=== PATIENT | female | born 1980 | race African-American/Black ===

== ENCOUNTER 2017-10-12 20:51 | Emergency (ER) | payer SELFPAY ==
--- NOTE | 2017-10-12 21:30 | RADIOLOGY REPORT (SQ) ---
EXAM DESCRIPTION: TOE RIGHT COMPLETED DATE/TIME: 10/12/2017 9:22 pm REASON FOR STUDY: Bumped toe 2 wks ago- now pain/throbbing COMPARISON: None. NUMBER OF VIEWS: Two views. TECHNIQUE: AP oblique images acquired of the right fifth toe. LIMITATIONS: None. FINDINGS: MINERALIZATION: Normal. BONES: Spiral fracture proximal phalanx 5th digit. No intra-articular extension. JOINTS: No effusions. SOFT TISSUES: No soft tissue swelling. No foreign body. OTHER: No other significant finding. IMPRESSION: Spiral fracture proximal phalanx 5th digit. COMMENT: SITE OF TRAUMA/COMPLAINT MARKED/STAMP COMPLETED: Yes TECHNICAL DOCUMENTATION: JOB ID: [id number] [employer]- All Rights Reserved Reading location - IP/workstation name: [email or web address]
--- NOTE | 2017-10-12 21:58 | ER Document Report ---
ED Extremity Problem, Lower - General Chief Complaint: Toe Injury Stated Complaint: TOE PAIN Time Seen by Provider: 10/12/17 21:52 Mode of Arrival: Ambulatory Information source: Patient Notes: 37-year-old female presented ED for complaint of pain to the fifth toe on the right foot. She states she injured this toe about 2 weeks ago and is continued to have pain in this area since then. She states she has not followed up with a doctor and thought she would just get better on her own but it has not gotten better. TRAVEL OUTSIDE OF THE [place] IN LAST 30 DAYS: No - HPI Patient complains to provider of: Injury, Pain Location: 5th Toe Occurred: Other - 2 weeks Where: Home Onset/Duration: Persistent Quality of pain: Sharp, Throbbing Severity: Moderate Pain Level: 4 Context: Stubbed Recent injury: Yes Associated symptoms: Painful ambulation Exacerbated by: Hanging down, Movement, Walking Relieved by: Elevation, Ice, Rest - Related Data Allergies/Adverse Reactions: Penicillins Allergy (Verified 10/12/17 21:50) Past Medical History - General Information source: Patient - Social History Smoking Status: Current Every Day Smoker Cigarette use (# per day): Yes Frequency of alcohol use: None Drug Abuse: None Lives with: Family Family History: Reviewed & Not Pertinent Patient has suicidal ideation: No Patient has homicidal ideation: No - Past Medical History Cardiac Medical History: Reports: None Pulmonary Medical History: Reports: None EENT Medical History: Reports: None Neurological Medical History: Reports: None Endocrine Medical History: Reports: None Renal/ Medical History: Reports: None Malignancy Medical History: Reports: None GI Medical History: Reports: None Musculoskeletal Medical History: Reports Hx Musculoskeletal Trauma Skin Medical History: Reports None Psychiatric Medical History: Reports: None Traumatic Medical History: Reports: Hx Fractures - Right fifth toe Infectious Medical History: Reports: None Surgical Hx: Negative Past Surgical History: Reports: None Review of Systems - Review of Systems Constitutional: No symptoms reported EENT: No symptoms reported Cardiovascular: No symptoms reported Respiratory: No symptoms reported Gastrointestinal: No symptoms reported Genitourinary: No symptoms reported Female Genitourinary: No symptoms reported Musculoskeletal: Other - Pain and swelling the right fifth toe Skin: No symptoms reported Hematologic/Lymphatic: No symptoms reported Neurological/Psychological: No symptoms reported -: Yes All other systems reviewed and negative Physical Exam - Vital signs Vitals: Temp Pulse Resp BP Pulse Ox 98.7 F 83 16 140/91 H 100 10/12/17 20:55 10/12/17 20:55 10/12/17 20:55 10/12/17 20:55 10/12/17 20:55 Interpretation: Normal - General General appearance: Appears well, Alert - HEENT Head: Normocephalic, Atraumatic Eyes: Normal Pupils: PERRL - Respiratory Respiratory status: No respiratory distress Chest status: Nontender Breath sounds: Normal Chest palpation: Normal - Cardiovascular Rhythm: Regular Heart sounds: Normal auscultation Murmur: No - Abdominal Inspection: Normal Distension: No distension Bowel sounds: Normal Tenderness: Nontender Organomegaly: No organomegaly - Back Back: Normal, Nontender - Extremities General upper extremity: Normal inspection, Nontender, Normal color, Normal ROM , Normal temperature General lower extremity: Normal ROM, Normal temperature, Normal weight bearing. No: Angelique's sign Foot: Tender, Ecchymosis - Right fifth toe right fifth toe and surrounding area , Edema - Right fifth toe, No evidence of FB, Tender 5th metatarsal - Neurological Neuro grossly intact: Yes Cognition: Normal Orientation: AAOx4 Alvaro Coma Scale Eye Opening: Spontaneous Alvaro Coma Scale Verbal: Oriented Alvaro Coma Scale Motor: Obeys Commands Alvaro Coma Scale Total: 15 Speech: Normal Motor strength normal: LUE, RUE, LLE, RLE Sensory: Normal - Psychological Associated symptoms: Normal affect, Normal mood - Skin Skin Temperature: Warm Skin Moisture: Dry Skin Color: Normal, Ecchymosis - Right fifth toe and surrounding area Course - Re-evaluation Re-evalutation: 10/13/17 02:32 Discussed x-ray with patient. Report of x-ray given to patient. Patient was instructed she needed to follow-up with orthopedics as this was a displaced fracture of the proximal phalanx of the fifth toe on the right foot. This happened about 2 weeks ago. Patient is continuing to have pain. Patient was discharged home with a [employer] dispense pack and told to please make sure this last long enough for her to follow-up. Patient is encouraged to elevate and ice the foot and stay off it is much as possible to decrease the pain. Patient verbalized understanding of treatment plan. - Vital Signs Vital signs: Temp Pulse Resp BP Pulse Ox 98.6 F 82 14 137/83 H 100 10/12/17 22:12 10/12/17 22:12 10/12/17 22:12 10/12/17 22:12 10/12/17 22:12 - Diagnostic Test Radiology reviewed: Image reviewed, Reports reviewed Procedures - Immobilization Right Foot Time completed: 22:30 Pre-Proc Neuro Vasc Exam: Normal Immobilizer type: Post-op shoe Performed by: ALLEN Post-Proc Neuro Vasc Exam: Normal Alignment checked and good: No - toe was not reduced dane taped nd post op shoe Discharge - Discharge Clinical Impression: spiral fracture 5th proximal toe Condition: Stable Disposition: HOME, SELF-CARE Additional Instructions: Fractured Toe You have fractured your toe. Although this fracture doesn't need a cast or splint, emergency evaluation was needed to assess the straightness of the bones and joints. Reduction ("setting") is necessary for toe fractures which are crooked or twisted. A toe fracture will heal in about three weeks. Usually, the fractured toe is taped to the next toe. The second toe acts as a moving splint to protect the broken one. Ice and elevation help during the first 48 hours. You may need crutches at first if walking is painful. When you begin walking, be careful NOT to do things that hurt. If weight bearing is not comfortable within a few days, you may require a special shoe, walking boot, or cast. Call the doctor or return at once if severe swelling, severe pain, or numbness develop in the toe, or if you suspect you may have re-injured it. ICE & ELEVATION: Apply ice packs frequently against the painful area. Many different schedules are recommended, such as "20 minutes on, 20 minutes off" or "one hour ice, two hours rest." If you need to work, you may need to go longer between ice treatments. You should plan to have the area ice packed AT LEAST one- fourth of the time. The ice should be applied over the wrap, tape, or splint, or over a layer of cloth -- not directly against the skin. Some ice bags have a built-in cloth and can be put directly on the skin. Your injured part should be elevated as much as possible over the next 48 hours. Try to keep the injury above the level of the heart. Avoid use of the injured area. Elevation and rest will decrease the swelling. USE OF XYOS-NBD-GIFUMFR IBUPROFEN: Ibuprofen (Advil, Nuprin, Medipren, Motrin IB) is a medication for fever and pain control. In addition, it has anti- inflammatory effects which may be beneficial, especially in the treatment of injuries. It's best to take ibuprofen with food. Persons with ulcer disease or allergy to aspirin should notify their physician of this before taking ibuprofen. Ibuprofen can be given every four to six hours, for a total of four doses daily. Age Pain or fever dose Antiinflammatory dose 6-8 yr 200 mg (1 tab) 200 mg (1 tab) 9-11 yr 200 mg (1 tab) 200-400 mg (1-2 tab) 11-14 yr 200-400 mg (1-2 tab) 400 mg (2 tab) 15-adult 400 mg (2 tab) 600 mg (3 tab) ORAL NARCOTIC MEDICATION: You have been given a [employer] dispense pack for pain control. This medication is a narcotic. It's best taken with food, as nausea can result if taken on an empty stomach. Don't operate machinery or drive within six hours of taking this medication. Do not combine this medicine with alcohol, or with any medication which can cause sedation (such as cold tablets or sleeping pills) unless you get permission from the physician. Narcotics tend to cause constipation. If possible, drink plenty of fluids and eat a diet high in fiber and fruits. Please be aware that prescription narcotics also have the potential for abuse. People become addicted to these medications because of the general sense of wellbeing that they induce. This feeling along with a significant reduction in tension, anxiety, and aggression provides a stimulating seductive quality to these drugs. Once your pain is under control, we encourage you to discard your unused narcotics. Post-Op Shoe You are to use a "post-op shoe," sometimes also called a "bunnion shoe." This shoe helps protect minor fractures, sprains, and other injuries of the toes or foot. You may remove the shoe for bathing. Walk carefully. If you're feeling pain, put less weight on the foot, take smaller steps, or use a cane. If you have a new injury, you may need to use crutches for the first couple of days. If pain still prevents walking after a few days, contact the doctor. If there's unexpected pain in your foot, if blisters or sore spots develop , or if the shoe is physically coming apart, return at once. Remember that you' re welcome to come in at any time to have the fit of the shoe checked and adjusted. FOLLOW-UP CARE: If you have been referred to a physician for follow-up care, call the physician s office for an appointment as you were instructed or within the next two days. If you experience worsening or a significant change in your symptoms, notify the physician immediately or return to the Emergency Department at any time for re-evaluation. Forms: Elevated Blood Pressure, Special Work Note, Smoking Cessation Education Referrals: NOHEMY SOLIS MD [ACTIVE STAFF] - Follow up as needed
[2017-10-12] MEDS ORDERED: HYDROCODONE/ACETAMINOPHEN 5-325 MG (6 TAB/ER DISP) PO PRN (22:01)
[2017-10-12 22:13] VITALS: BP 137/83
== END 2017-10-12 22:28 | disposition home or self-care (01) ==
LOC: ER 20:51
DX: S92.511A Displaced fracture of proximal phalanx of right lesser toe(s), initial encounter for closed fracture (principal); X58.XXXA Exposure to other specified factors, initial encounter; Y92.009 Unspecified place in unspecified non-institutional (private) residence as the place of occurrence of the external cause; F17.210 Nicotine dependence, cigarettes, uncomplicated; Z88.0 Allergy status to penicillin
CPT/HCPCS: 99283

== ENCOUNTER 2018-02-10 22:40 | Emergency (ER) | payer MEDICAID ==
--- NOTE | 2018-02-10 23:27 | ER Document Report ---
ED ENT - General Chief Complaint: Toothache Stated Complaint: TOOTHACHE Time Seen by Provider: 02/10/18 23:07 Mode of Arrival: Ambulatory Information source: Patient Notes: To note first off and patient was listed as having heart rate 173 as was a misprint but the tech that wrote it down had left by the time it was discovered and not legal for him with the change except her. Our nursing staff is retaken it again and patient's heart rate is 88 on my recheck. Currently patient's main complaint to come here today is twofold 1. She had bilateral ear piercings for the first time in her life up in her auricle and this was 4 weeks ago in 2 weeks ago she started having pain and discomfort in the area along with a dental pain on the left upper back molar where she has a bad tooth. She is started taking ibuprofen and Tylenol and she is taking it "like water". And is not getting any better. She states that yesterday she squeezed some green pus out of the auricle of the left ear lobe. She denies having fevers up until today and this morning she woke up she was dripping wet. Patient denies any other medical problems. She does smoke approximately half a pack per day. 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 TRAVEL OUTSIDE OF THE [place] IN LAST 30 DAYS: No - HPI Patient complains to provider of: Dental problem, Ear problem Onset: Other - 2 weeks ago Onset/Duration: Gradual, Persistent, Worse Quality of pain: Achy, Sharp, Stabbing Severity: Severe Pain Level: 4 Location of pain: Ears, Tooth Teeth: 1 - Dental pain into the gumline of a fractured back left upper molar. Associated symptoms: Broken tooth, Dental pain, Dental caries, Ear pain, Face swelling, Headache, Jaw swelling Similar symptoms previously: No Recently seen / treated by doctor: No - Related Data Allergies/Adverse Reactions: Penicillins Allergy (Verified 10/12/17 21:50) Past Medical History - Social History Smoking Status: Current Every Day Smoker Cigarette use (# per day): Yes - Half-pack a day Chew tobacco use (# tins/day): No Smoking Education Provided: No Frequency of alcohol use: None Drug Abuse: None Family History: Reviewed & Not Pertinent Patient has suicidal ideation: No Patient has homicidal ideation: No Renal/ Medical History: Denies: Hx Peritoneal Dialysis Musculoskeletal Medical History: Reports Hx Musculoskeletal Trauma Traumatic Medical History: Reports: Hx Fractures - Right fifth toe Past Surgical History: Reports: Hx Cholecystectomy Review of Systems - Review of Systems Constitutional: See HPI, Fever EENT: Ear pain, Ear discharge, Mouth pain, Dental problem Cardiovascular: No symptoms reported Respiratory: No symptoms reported Gastrointestinal: No symptoms reported Genitourinary: No symptoms reported Female Genitourinary: No symptoms reported Musculoskeletal: No symptoms reported Skin: No symptoms reported Hematologic/Lymphatic: No symptoms reported Neurological/Psychological: No symptoms reported -: Yes All other systems reviewed and negative Physical Exam - Vital signs Vitals: Temp Pulse Resp BP Pulse Ox 98.7 F 173 H 16 137/80 H 100 02/10/18 22:55 02/10/18 22:55 02/10/18 22:55 02/10/18 22:55 02/10/18 22:55 As stated earlier the 173 heart rate that was mistakenly placed and there was a misprint. On the triage sheet that the girl wrote up it did have her heart rate down at 87 and she had a blood pressure of 137/80 so she may have inverted at 137 mistakenly. Any rate was rechecked and I had her at believe 88. - Notes Notes: PHYSICAL EXAMINATION: GENERAL: Patient is a well-nourished well-developed 37-year-old female who is in no apparent distress but is in obvious pain and discomfort. Swelling on the left side of the face can be seen from entering the room. HEAD: Atraumatic, normocephalic. EYES: Pupils equal round and reactive to light, extraocular movements intact, conjunctiva are normal. ENT: Examination of the head and upper airway showed nasal mucosa to be moderately edematous and edematous with mild rhinorrhea. She has bilateral nasal congestion. Bilateral TMs are bulging slightly with no air-fluid levels. Examination of patient's left auricle shows that there is a post in the cartilaginous material going in a upward direction and there appears to be some very faint amount of pus which is expressible with pressure added. But is very small amount and the swelling on there does not look very large. Coming down to the zygomatic process patient has a moderate amount of tenderness there she has on opening on the right side a click and a shift of the socket. I believe this may be secondary to the swelling on the left side of the face. The swelling is moderate but not overt. The swelling is around the zygomatic process and extends down to the angle of the jaw. Further evaluation of the oral cavity shows that she has the left upper back molar decayed and fractured. There is some expressible discharge when pressure applied to the fracture portion of the tooth. The gum looks moderately inflamed. This is where I believe most of the discomfort and pain is coming from. This may be also was causing the right side to shift when she opens her mouth. NECK: Normal range of motion, supple without lymphadenopathy LUNGS: Breath sounds clear to auscultation bilaterally and equal. No wheezes rales or rhonchi. HEART: Regular rate and rhythm without murmurs Female : deferred Musculoskeletal: Normal range of motion, no pitting or edema. No cyanosis. NEUROLOGICAL: Normal speech, normal gait. Normal sensory, motor exams PSYCH: Normal mood, normal affect. SKIN: Warm, Dry, normal turgor, no rashes or lesions noted. Course - Re-evaluation Re-evalutation: 02/10/18 23:33 I informed patient that I believe she is got 2 processes going on the ear I believe is just a minor addition to this. Although I have informed her that if she does not clear up the infection and the cartilaginous material that is just can become floppy. Patient has allergies to penicillin so for her dental pain we will put her on clindamycin since she also has the infection of the auricle of the ear. I have informed patient that this may upset her stomach and that if it just when she can back off 1 pill a day to see if that helps. I am also been put on a low steroid taper small to help with the inflammation of the face. And I am putting her on some pain medication secondary to the TMJ and the moderate amount of crepitus and movement of the right side. - Vital Signs Vital signs: Temp Pulse Resp BP Pulse Ox 98.7 F 173 H 16 137/80 H 100 02/10/18 22:55 02/10/18 22:55 02/10/18 22:55 02/10/18 22:55 02/10/18 22:55 Discharge - Discharge Clinical Impression: Dental abscess, Cellulitis of auricle of left ear, TMJ (temporomandibular joint disorder) Condition: Stable Disposition: HOME, SELF-CARE Instructions: Abscess ([facility]), [facility], Clindamycin ([facility]), Oral Narcotic Medication ([facility]), Toothache ([facility]), Cellulitis ([facility]) Additional Instructions: As we have discussed I believe you have to process ongoing one is an infection in the auricle of the left ear where you have the new post placement. This is something you must monitor very closely because an infection in the cartilaginous area of the ear not taking care of can cause it to become spongy and soft. I also believe he has a minor to moderate abscess in the left upper back molar of the tooth that is broken. Again antibiotic should help relieve this discomfort and pain. The swelling of your face should also start to be reduced with the addition of the steroid. You need to monitor this very very closely. The popping out of your jaw on the right side if it totally dislocates is very painful and is very difficult to put back into place. Once we get the swelling on the left side down I believe you be back to your baseline. Should that happen come directly to the emergency room. As far as dental help goes you can go to [facility] they do offer dental intervention for people and needed. Prescriptions: Clindamycin HCl [Cleocin 300 mg Capsule] 300 mg PO Q6 10 Days #40 capsule Fluconazole [Diflucan] 150 mg PO ONCE PRN #1 tablet PRN Reason: Oxycodone HCl/Acetaminophen [Percocet 5-325 mg Tablet] 1 tab PO Q6 PRN #12 tablet PRN Reason: Prednisone 5 mg PO ASDIR 6 Days #1 tab.ds.pk Forms: Smoking Cessation Education, Return to Work Referrals: [facility] [NO LOCAL MD] - Follow up as needed
[2018-02-10] MEDS ORDERED: CLINDAMYCIN HCL 150 MG CAPSULE PO ONE (23:42)
[2018-02-10 23:58] VITALS: BP 138/79
== END 2018-02-10 23:58 | disposition home or self-care (01) ==
LOC: ER 22:40
DX: K04.7 Periapical abscess without sinus (principal); H60.12 Cellulitis of left external ear; M26.609 Unspecified temporomandibular joint disorder, unspecified side; K02.9 Dental caries, unspecified; K08.89 Other specified disorders of teeth and supporting structures; J34.89 Other specified disorders of nose and nasal sinuses; F17.210 Nicotine dependence, cigarettes, uncomplicated; Z88.0 Allergy status to penicillin; R09.81 Nasal congestion
CPT/HCPCS: 99282; J3490

== ENCOUNTER 2018-08-24 08:07 | Emergency (ER) | payer MEDICAID ==
[2018-08-24] MEDS ORDERED: IBUPROFEN 800 MG TABLET PO ONE (09:07)
--- NOTE | 2018-08-24 09:14 | ER Document Report ---
HPI - HPI Patient complains to provider of: right hand pain Time Seen by Provider: 08/24/18 08:33 Onset: Yesterday Onset/Duration: Persistent Quality of pain: Achy, Throbbing Severity: Severe Pain Level: 4 Context: Patient presents to the emergency department with complaints of right hand pain. 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 She thought it may have been a insect bite. Today she woke up her right hand is swollen. She reports pain with movement. No other complaints such as fever vomiting diarrhea. Patient does report history of carpal tunnel syndrome in both wrist. Denies trauma. Patient is right-hand dominant. 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 Family History: Reviewed & Not Pertinent Patient has suicidal ideation: No Patient has homicidal ideation: No Renal/ Medical History: Denies: Hx Peritoneal Dialysis Musculoskeletal Medical History: Reports Hx Musculoskeletal Trauma, Reports Other - carpal tunnel Traumatic Medical History: Reports: Hx Fractures - Right fifth toe Past Surgical History: Reports: Hx Cholecystectomy Vertical Provider Document - CONSTITUTIONAL Agree With Documented VS: Yes Exam Limitations: No Limitations General Appearance: WD/WN, Mild Distress - when right hand palpated - INFECTION CONTROL TRAVEL OUTSIDE OF THE [place] IN LAST 30 DAYS: No - HEENT HEENT: Atraumatic, Normocephalic - NECK Neck: Supple - RESPIRATORY Respiratory: No Respiratory Distress - CARDIOVASCULAR Cardiovascular: Regular Rate - MUSCULOSKELETAL/EXTREMETIES Musculoskeletal/Extremeties: Tender - right hand dorsal ttp, swollen +erythema, good cap refill, + radial pulse, neg tinels - NEURO Level of Consciousness: Awake, Alert, Appropriate Motor/Sensory: No Motor Deficit - DERM Integumentary: Warm, Dry Course - Re-evaluation Re-evalutation: 08/24/18 10:27 X-ray negative. Patient reports feeling better after ice pack was placed on her hand. She was instructed on ice and elevating her hand. Instructed on signs and symptoms of infection. She verbalized understanding to all instructions. Dictation of this chart was performed using voice recognition software; therefore, there may be some unintended grammatical errors. - Vital Signs Vital signs: Temp Pulse Resp BP Pulse Ox 98.4 F 78 18 133/69 H 100 08/24/18 08:11 08/24/18 08:11 08/24/18 08:11 08/24/18 08:11 08/24/18 08:11 - Diagnostic Test Radiology reviewed: Image reviewed, Reports reviewed - EXAM DESCRIPTION: HAND RIGHT 3 VIEWS COMPLETED DATE/TIME: 08/24/2018 9:39 am REASON FOR STUDY: bony tenderness COMPARISON: None. EXAM PARAMETERS: NUMBER OF VIEWS: Three views. TECHNIQUE: AP, lateral and oblique radiographic images acquired of the right hand. LIMITATIONS: None. FINDINGS: MINERALIZATION: Normal. BONES: No acute fracture or dislocation. No worrisome bone lesions. JOINTS: No effusions. SOFT TISSUES: Dorsal soft tissue swelling OTHER: No other significant finding. IMPRESSION: Soft tissue swelling. No fracture. Discharge - Discharge Clinical Impression: Right hand pain Condition: Stable Disposition: HOME, SELF-CARE Instructions: Use of Diphenhydramine, Ibuprofen (General) ([facility]), Ice & Elevation ([facility]) Additional Instructions: *You have been evaluated for right hand pain *take benadryl as indicated *Rest/Ice/Elevate your hand *Follow up with your primary care provider within 5 days *Take medication as prescribed *Monitor your hand for increased swelling, warmth, redness *Return to ED for worsening condition, changes, needs Monitor your blood pressure. Your blood pressure was elevated today. This may be because you were anxious, in pain or because you need medication. It is important to follow up with your primary care provider for full evaluation. Prescriptions: Ibuprofen [Motrin 800 mg Tablet] 800 mg PO TID #20 tablet Forms: Elevated Blood Pressure, Return to Work, Smoking Cessation Education
[2018-08-24 10:05] VITALS: BP 130/64
--- NOTE | 2018-08-24 10:18 | RADIOLOGY REPORT (SQ) ---
EXAM DESCRIPTION: HAND RIGHT 3 VIEWS COMPLETED DATE/TIME: 08/24/2018 9:39 am REASON FOR STUDY: bony tenderness COMPARISON: None. EXAM PARAMETERS: NUMBER OF VIEWS: Three views. TECHNIQUE: AP, lateral and oblique radiographic images acquired of the right hand. LIMITATIONS: None. FINDINGS: MINERALIZATION: Normal. BONES: No acute fracture or dislocation. No worrisome bone lesions. JOINTS: No effusions. SOFT TISSUES: Dorsal soft tissue swelling OTHER: No other significant finding. IMPRESSION: Soft tissue swelling. No fracture. TECHNICAL DOCUMENTATION: JOB ID: [id number] [employer]- All Rights Reserved Reading location - IP/workstation name: [email or web address]
== END 2018-08-24 09:55 | disposition home or self-care (01) ==
LOC: ER 08:07
DX: M79.641 Pain in right hand (principal); F17.210 Nicotine dependence, cigarettes, uncomplicated; Z90.49 Acquired absence of other specified parts of digestive tract
CPT/HCPCS: 99283; 73130; J3490

== ENCOUNTER 2018-10-08 07:41 | Emergency (ER) | payer MEDICAID ==
[2018-10-08] MEDS ORDERED: IPRATROPIUM/ALBUTEROL 0.5-2.5 MG/3 ML AMPUL NEB ONE (09:22)
--- NOTE | 2018-10-08 11:02 | ER Document Report ---
HPI - HPI Time Seen by Provider: 10/08/18 08:45 Pain Level: 2 Notes: 38-year-old female presents the ED for complaints of productive cough, chills that started approximately 3 days ago. Patient is have a pack-a-day smoker for the last 17 years. Has not tried any azvx-xeg-fmelfma medications. Worse with time, nothing makes better. Reports nasal congestion, ear pain. Denies any sore throat. Patient states she is unsure if she has seasonal allergies. Denies fevers, chills, chest pain,palpitations, shortness of breath, dyspnea, nausea, vomiting, diarrhea, abdominal pain, hematuria,blurred vision, double vision, loss of vision, speech changes, LH, dizziness, syncope, headaches, wheezing, ST, neck pain, weakness, bowel or bladder dysfunction, saddle anesthesia, numbness or tingling in bilateral upper or lower extremities equally, muscle paralysis, weakness in bilateral upper or lower extremities equally or rash. - CONSTITUTIONAL Constitutional: REPORTS: Chills - EENT EENT: REPORTS: Sore Throat - CARDIOVASCULAR Cardiovascular: REPORTS: Chest pain - RESPIRATORY Respiratory: REPORTS: Coughing - REPRODUCTIVE Reproductive: DENIES: : Past Medical History - General Information source: Patient - Social History Smoking Status: Current Every Day Smoker Frequency of alcohol use: None Drug Abuse: None Family History: Reviewed & Not Pertinent Patient has suicidal ideation: No Patient has homicidal ideation: No Renal/ Medical History: Denies: Hx Peritoneal Dialysis Musculoskeletal Medical History: Reports Hx Musculoskeletal Trauma Traumatic Medical History: Reports: Hx Fractures - Right fifth toe Past Surgical History: Reports: Hx Cholecystectomy Vertical Provider Document - CONSTITUTIONAL Agree With Documented VS: Yes Exam Limitations: No Limitations General Appearance: WD/WN Notes: PHYSICAL EXAMINATION: GENERAL: Well-appearing, well-nourished and in no acute distress. HEAD: Atraumatic, normocephalic. EYES: Pupils equal round and reactive to light, extraocular movements intact, conjunctiva are normal. ENT: TM intact with bilateral serous effusion, no erythema. Nares boggy bilaterally, oropharynx with erythema without exudates. Moist mucous membranes. NECK: Normal range of motion, supple without lymphadenopathy LUNGS: Diminished breath sounds in bilateral upper lobes, after breathing treatment, breath sounds clear to auscultation bilaterally and equal. No wheezes rales or rhonchi. HEART: Regular rate and rhythm without murmurs ABDOMEN: Soft, nontender, nondistended abdomen. No guarding, no rebound. No masses appreciated. Female : deferred Musculoskeletal: Normal range of motion, no pitting or edema. No cyanosis. NEUROLOGICAL: Cranial nerves grossly intact. Normal speech, normal gait. Normal sensory, motor exams PSYCH: Normal mood, normal affect. SKIN: Warm, Dry, normal turgor, no rashes or lesions noted. - INFECTION CONTROL TRAVEL OUTSIDE OF THE [place] IN LAST 30 DAYS: No Course - Re-evaluation Re-evalutation: 10/08/18 10:48 Patient afebrile vital stable no distress. Nurse's notes reviewed. Chest x-ray shows We will start patient on a course of prednisone 20 mg 3 times a day for 5 days as well as Ventolin inhaler. Advised to use wmqj-zpz-naealen antihistamine, decongestants, humidifier, use cough drops as needed.Presentation is most consistent with a viral upper respiratory infection. Patient is overall well appearance, vitals within normal limits, well-hydrated. Patient denies any headache, neck pain, and has no evidence of meningismus on examination. Lungs are clear bilaterally. No evidence of respiratory distress. Based on clinical exam and history, I do not suspect an acute pneumonia, meningitis, strep pharyngitis, or an acute encephalitis. No laboratory or imaging testing is indicated at this time. Will discharge patient with return precautions and followup recommendations. They are in agreement this plan have verbalized understanding return precautions. - Vital Signs Vital signs: Temp Pulse Resp BP Pulse Ox 98.9 F 76 16 144/83 H 98 10/08/18 07:45 10/08/18 07:45 10/08/18 07:45 10/08/18 07:45 10/08/18 07:45 Discharge - Discharge Clinical Impression: Cough Condition: Stable Disposition: HOME, SELF-CARE Instructions: Cough Suppressant & Expectorant Medications Additional Instructions: UPPER RESPIRATORY ILLNESS: You have a viral infection of the respiratory passages -- a "cold." This common infection causes nasal congestion, drainage, and often sore throat and cough. It is highly contagious. The disease usually lasts about 10 to 14 days. There is no "cure" for the viral infection -- it must run its course. If there is a complication, such as bacterial infection in the nose, sinuses, middle ear, or bronchial tubes, antibiotics may be required. The antibiotics won't affect the virus. Drink plenty of fluids. A humidifier may help. An expectorant medication or decongestant may make you more comfortable. Use acetaminophen or ibuprofen for fever or aches. See the doctor if fever persists over two days, if there is any significant worsening of your symptoms, or if you simply fail to improve as expected. BRONCHOSPASM: You have tightness in the bronchial tubes, called bronchospasm. This often occurs with bronchial infections. Allergies, inhaled chemicals, and polluted or cold air can also provoke bronchospasm. It's more likely in patients with asthma in the family. Emergency treatment of bronchospasm may include adrenaline shots or bronchodilator aerosol. You may feel lightheaded and have a rapid pulse for an hour or two. Rest and get plenty of fluids. At home, we'll treat you with a bronchodilator inhaler. Antibiotics and corticosteroids may be required for some patients. Until you recover, avoid chemical fumes, dusts, pollens, and exercising in very cold or dry air. If you smoke, stop now!! If you develop a fever, increased wheezing, chest pain, or severe shortness of breath, you should contact the doctor immediately. DECONGESTANT MEDICATION: A decongestant medicine has been prescribed. Often this medicine is combined in the same tablet with an antihistamine or expectorant. This type of medicine is helpful in treating a bad cold or sinus condition, as well as in treatment of the nasal congestion of hay fever. It is not of much benefit for lung infections. Decongestant medicines are related to stimulants. They can cause an increase in blood pressure and heart rate. Persons with heart disease and high blood pressure should not take decongestants without discussing this with the physician. If you develop palpitations, chest pain, headache, or tremors, stop the medicine and consult your physician. COUGH-SUPPRESSANT & EXPECTORANT MEDICATION: You are to use a cough medication as needed for relief of symptoms. This medicine is a combination of an expectorant (to make the mucous thinner and more easily "coughed up") and a cough suppressant (to reduce the frequency of coughing). The cough-suppressant medicine is related to narcotics. You may experience mild nausea and sleepiness. Some patients who are very sensitive to narcotics may have stomach pain from this medicine. Taking the medicine with food reduces these side effects. Do not drive or work with machinery until you know how this medicine affects you. The expectorant should have no side effects. Iodine-containing expectorants (such as organidin) should not be taken by persons with active thyroid disease unless approved by your doctor. Call the doctor if you develop shortness of breath, hives, rash, itching, lightheadedness, or severe nausea and vomiting. INHALED BRONCHODILATORS: You have received a treatment of and/or prescription for an inhaled bronchodilator -- a medication which stimulates the airways in the lung to dilate. This improves the flow of air in asthma, bronchitis, and emphysema. These medicines have some similarity to adrenaline, and can cause similar side effects: shakiness, racing heart, and a sense of nervousness. These side effects decrease with time. Contact your doctor if these side effects are severe. Do not over-use the medicine. Too-frequent use of the inhaler may make it ineffective. Call your doctor if the inhaler is not controlling your symptoms at the prescribed doses. STEROID MEDICATION: You have been given an injection of or oral medicine of the cortisone/steroid class. This medication is used to control inflammation or allergy. Anmol t is usually only given for a short period of time, until the acute process subsides. There are usually no side effects from short-term use of cortisone-like medications. Some persons feel an increased sense of well-being and are not sleepy at bedtime. Long-term use of cortisone medications is best avoided, unless required for a severe condition. If your condition does not remit, or relapses after the course of corticosteroid medication, you should consult your physician. USE OF ACETAMINOPHEN (Tylenol): Acetaminophen may be taken for pain relief or fever control. It's much safer than aspirin, offering a wider range of "safe" dosages. It is safe during . Some brand names are Tylenol, Panadol, Datril, Anacin 3, Tempra, and Liquiprin. Acetaminophen can be repeated every four hours. The following are maximum recommended dosages: >89 pounds or adults 650 mg to 900 mg Acetaminophen can be repeated every four hours. Maximum dose not to exceed 4000 mg a day. SMOKING: If you smoke, you should stop smoking. The tar and chemicals in cigarette smoke are harmful. Smoking has been shown to cause: emphysema chronic bronchitis lung cancer mouth and throat cancer stomach and pancreas cancer premature aging defects In addition, smoking increases ear and lung infections in children of smokers. FOLLOW-UP CARE: If you have been referred to a physician for follow-up care, call the physicians office for an appointment as you were instructed or within the next two days. If you experience worsening or a significant change in your symptoms, notify the physician immediately or return to the Emergency Department at any time for re-evaluation. Prescriptions: Albuterol Sulfate [Proair Respiclick] 90 mcg IH Q4HP PRN #1 [email or web address] PRN Reason: Prednisone [Deltasone 20 mg Tablet] 3 tab PO DAILY 5 Days #15 tablet Referrals: SANTY RODRIGUEZ DO [Primary Care Provider] - Follow up as needed PAYT CURIEL MD [ACTIVE STAFF] - Follow up as needed
--- NOTE | 2018-10-08 11:27 | RADIOLOGY REPORT (SQ) ---
EXAM DESCRIPTION: CHEST 2 VIEWS COMPLETED DATE/TIME: 10/08/2018 10:29 am REASON FOR STUDY: productive cough, smoker, chills COMPARISON: None. EXAM PARAMETERS: NUMBER OF VIEWS: two views TECHNIQUE: Digital Frontal and Lateral radiographic views of the chest acquired. RADIATION DOSE: NA LIMITATIONS: none FINDINGS: LUNGS AND PLEURA: No opacities, masses or pneumothorax. No pleural effusion. MEDIASTINUM AND HILAR STRUCTURES: No masses or contour abnormalities. HEART AND VASCULAR STRUCTURES: Heart normal size. No evidence for failure. BONES: No acute findings. HARDWARE: None in the chest. OTHER: No other significant finding. IMPRESSION: No acute abnormality of the lungs. No focal airspace opacity. TECHNICAL DOCUMENTATION: JOB ID: [id number] [employer]- All Rights Reserved Reading location - IP/workstation name: [email or web address]
[2018-10-08 11:39] VITALS: BP 140/73
== END 2018-10-08 11:40 | disposition home or self-care (01) ==
LOC: ER 07:41
DX: R05 Cough (principal); R09.81 Nasal congestion; H92.09 Otalgia, unspecified ear; R07.9 Chest pain, unspecified; F17.200 Nicotine dependence, unspecified, uncomplicated; J02.9 Acute pharyngitis, unspecified; R68.83 Chills (without fever)
CPT/HCPCS: 94640; 99283; 71046; J7620

== ENCOUNTER 2018-12-13 07:50 | Emergency (ER) | payer MEDICAID ==
[2018-12-13] MEDS ORDERED: ACETAMINOPHEN 325 MG TABLET PO ONE (09:11)
--- NOTE | 2018-12-13 10:28 | ER Document Report ---
HPI - HPI Patient complains to provider of: breast pain, nipple discharge, back pain Time Seen by Provider: 12/13/18 08:58 Onset: Other Onset/Duration: Persistent Quality of pain: Achy Severity: Moderate Pain Level: 3 Context: This 38-year-old female presents emergency department with complaints of right breast pain for the past 2 days with nipple discharge. She reports she noted yellow bile colored discharge bloody coming out of her right nipple. She reports when she took off her bra she noted to discharge there. Patient does have close family history of breast cancer. Patient complains of some firmness above her nipple area. She is never had a mammogram. Denies fever vomiting diarrhea. Also complains of right-sided low back pain that radiates down her right leg since 2018 when she had her twins. She reports the pain comes and goes worse when she is about to start her menses. No urinary bowel incontinence or retention denies paresthesia. Denies history of IV drug use, steroid use. Associated Symptoms: None Exacerbated by: Movement Relieved by: Denies Similar symptoms previously: Yes - back pain Recently seen / treated by doctor: No - REPRODUCTIVE Reproductive: DENIES: : Past Medical History - General Information source: Patient Last Menstrual Period: oct - Social History Smoking Status: Current Every Day Smoker Cigarette use (# per day): Yes Chew tobacco use (# tins/day): No Frequency of alcohol use: None Drug Abuse: None Lives with: Family Family History: Malignancy - breast cancer- mother, grandmother Patient has suicidal ideation: No Patient has homicidal ideation: No Renal/ Medical History: Denies: Hx Peritoneal Dialysis Musculoskeletal Medical History: Reports Hx Musculoskeletal Trauma Traumatic Medical History: Reports: Hx Fractures - Right fifth toe Past Surgical History: Reports: Hx Cholecystectomy Vertical Provider Document - CONSTITUTIONAL Agree With Documented VS: Yes Exam Limitations: No Limitations General Appearance: WD/WN, No Apparent Distress - INFECTION CONTROL TRAVEL OUTSIDE OF THE [place] IN LAST 30 DAYS: No - HEENT HEENT: Atraumatic, Normal ENT Exam, Normocephalic. negative: Conjuctival Injection, Pharyngeal Erythema, Tympanic Membrane Red - NECK Neck: Normal Inspection, Supple. negative: Lymphadenopathy-Left, Lymphadenopathy-Right - RESPIRATORY Respiratory: Breath Sounds Normal, No Respiratory Distress, Other - right breast ttp, no nipple discharge observed slight firmness to 1200 around her areola no erythema, no warmth, no pustule, - CARDIOVASCULAR Cardiovascular: Regular Rate, Regular Rhythm - GI/ABDOMEN Gastrointestinal: Abdomen Soft, Abdomen Non-Tender - BACK Back: Normal Inspection - No obvious deformity no vertebral tenderness good distal movement sensation complains of right-sided low back pain that radiates down her right buttocks since 2018. Reports pain is worse when she is about to start her manses. - MUSCULOSKELETAL/EXTREMETIES Musculoskeletal/Extremeties: MAEW, FROM, Non-Tender - NEURO Level of Consciousness: Awake, Alert, Appropriate Motor/Sensory: No Motor Deficit - DERM Integumentary: Warm, Dry Adult Front & Back Diagram: 1 - Reports area tender to palpate 2 - Radiates down right leg Course - Re-evaluation Re-evalutation: 12/13/18 10:27 This 38-year-old female presents with complaints of right breast pain with difficult discharge for the past 2 days. She has a strong history of breast c ancer in her family past. She has never had a mammogram she does not have a primary care provider breast ultrasound ordered. Patient also complains of right-sided low back pain. She was treated with Tylenol. We discussed back pain sciatica. Chest Ultrasound 12/13/18 09:10 IMPRESSION: No suspicious findings detected by ultrasound. Patient was instructed on ultrasound with no suspicious findings. She was encouraged to follow-up for mammogram this week. She was instructed on her strong family history the importance of being proactive and making sure she did not have breast cancer. She verbalized understanding to all instructions. Dictation of this chart was performed using voice recognition software; therefore, there may be some unintended grammatical errors. - Diagnostic Test Radiology reviewed: Reports reviewed Discharge - Discharge Clinical Impression: Right breast pain with nipple discharge Low back pain Qualifiers: Chronicity: unspecified Back pain laterality: right Sciatica presence: unspecified whether sciatica present Qualified Code(s): M54.5 - Low back pain Condition: Stable Disposition: HOME, SELF-CARE Additional Instructions: *You have been evaluated for breast pain nipple discharge low back pain The ultrasound of your breast was negative for an abscess. *Take ibuprofen as indicated for pain Do not squeeze her nipple You have a strong family history of breast cancer please quit smoking and follow-up with her primary care provider or SYSTEMS ARCHITECT within 1 week to schedule a mammogram *Return to ED for worsening condition, changes, needs *Return to ED if not better in 24 hours Forms: Smoking Cessation Education
--- NOTE | 2018-12-13 11:46 | RADIOLOGY REPORT (SQ) ---
EXAM DESCRIPTION: U/S CHEST COMPLETED DATE/TIME: 12/13/2018 10:11 am REASON FOR STUDY: RIGHT BREAST NIPPLE DISCHARGE PAIN R/O ABSCESS COMPARISON: None. TECHNIQUE: Real-time and static grayscale imaging performed of the right breast and axilla, in the a norman of clinical concern. Patient has increasing right breast pain with yellowish and bloody nipple d ischarge. LIMITATIONS: None. FINDINGS: MASS: No mass identified. Normal glandular tissue. OTHER: No other significant finding. No abscess. No axillary lymph nodes. IMPRESSION: No suspicious findings detected by ultrasound. BIRAD: Negative. RECOMMENDATION: RECOMMENDED FOLLOW-UP: Patient requires an outpatient diagnostic mammographic workup , and should also have consultation with a breast surgeon COMMENT: The [employer] ([employer]) has developed recommendations for screening MRI of the breasts in certain patient populations, to be used in conjunction with mammography. Breast MRI s urveillance may be appropriate for women with more than 20% lifetime risk of developing breast cancer as determined by genetic testing, significant family history of the disease, or history of mantle r adiation for Hodgkins Disease. ACR Practice Guidelines 2008. TECHNICAL DOCUMENTATION: JOB ID: [id number] [employer]- All Rights Reserved Reading location - IP/workstation name: [email or web address]
[2018-12-13 12:05] VITALS: BP 112/66
== END 2018-12-13 12:06 | disposition home or self-care (01) ==
LOC: ER 07:50
DX: N64.4 Mastodynia (principal); M54.5 Low back pain; N64.52 Nipple discharge; F17.210 Nicotine dependence, cigarettes, uncomplicated; Z90.49 Acquired absence of other specified parts of digestive tract
CPT/HCPCS: 76604; J3490

== ENCOUNTER 2019-04-13 08:33 | Emergency (ER) | payer MEDICAID ==
[2019-04-13 08:52] VITALS: BP 147/84
[2019-04-13] MEDS ORDERED: KETOROLAC TROMETHAMINE INJ/PF 30 MG/1 ML SDV IM ONE (09:22)
--- NOTE | 2019-04-13 09:26 | ER Document Report ---
HPI - HPI Time Seen by Provider: 04/13/19 09:16 Pain Level: 4 Context: Patient is a 38-year-old female who presents emergency department with a chief complaint of low back pain. Patient reports she was seen here last month and diagnosed with sciatica. Patient reports that since then she has had intermittent low back pain that has been worse over the past few days. Patient reports it is across the whole lower back. Patient reports back in February she did have intermittent numbness and tingling down the right leg but has not had these symptoms recently. Patient denies loss of bowel or bladder. Patient reports she has been alternating Tylenol and Motrin without much relief. Patient denies IV drug use. Patient reports she has had some urinary frequency. Denies vaginal bleeding or discharge. Last menstrual cycle was April 05. - REPRODUCTIVE Reproductive: DENIES: : Past Medical History - General Information source: Patient - Social History Smoking Status: Current Every Day Smoker Chew tobacco use (# tins/day): No Frequency of alcohol use: None Drug Abuse: None Lives with: Family Family History: Malignancy - breast cancer- mother, grandmother Patient has suicidal ideation: No Patient has homicidal ideation: No - Past Medical History Cardiac Medical History: Reports: None Pulmonary Medical History: Reports: None EENT Medical History: Reports: None Neurological Medical History: Reports: None Endocrine Medical History: Reports: None Renal/ Medical History: Reports: None. Denies: Hx Peritoneal Dialysis Malignancy Medical History: Reports: None GI Medical History: Reports: None Musculoskeletal Medical History: Reports Hx Musculoskeletal Trauma Skin Medical History: Reports None Psychiatric Medical History: Reports: None Traumatic Medical History: Reports: Hx Fractures - Right fifth toe Infectious Medical History: Reports: None Past Surgical History: Reports: Hx Cholecystectomy Vertical Provider Document - CONSTITUTIONAL Agree With Documented VS: Yes Exam Limitations: No Limitations General Appearance: No Apparent Distress - INFECTION CONTROL TRAVEL OUTSIDE OF THE [place] IN LAST 30 DAYS: No - HEENT HEENT: Atraumatic, Normal ENT Exam, Normocephalic, PERRLA - NECK Neck: Normal Inspection - RESPIRATORY Respiratory: Breath Sounds Normal, No Respiratory Distress - CARDIOVASCULAR Cardiovascular: Regular Rate, Regular Rhythm - GI/ABDOMEN Gastrointestinal: Abdomen Soft, Normal Bowel Sounds Notes: Mild suprapubic tenderness. - BACK Notes: Patient has diffuse tenderness across the lumbar spine. Patient does have lumbar midline tenderness with palpation. - MUSCULOSKELETAL/EXTREMETIES Musculoskeletal/Extremeties: FROM - NEURO Level of Consciousness: Awake, Alert, Appropriate - DERM Integumentary: Warm, Dry, No Rash Course - Re-evaluation Re-evalutation: 04/13/19 11:34 Patient was noted to have arthritis in her lower back. This was present on the x-ray. Will prescribe patient an anti-inflammatory. Upon discharge in talking with the patient she does state that she has some suprapubic pain. Patient denies vaginal bleeding or discharge. Urinalysis was unremarkable and slightly contaminated, urine culture was sent. Patient reports that she had unprotected sex with her ex on '. Patient reports that she has had a sexually transmitted disease in the past and would like to be treated and tested for this. I did offer the patient a pelvic examination to rule out bacterial vaginosis, yeast and to obtain pelvic specimens for gonorrhea and chlamydia. Patient reports due to her back pain she would like to wait and send off a urine specimen and to be prophylactically treated. I did inform the patient if her symptoms were to change or worsen she does need to come back to have the pelvic examination. Patient in agreement with plan at this time. Patient also reports having allergy to penicillin but that this causes gastric upset and diarrhea. No anaphylaxis. We will go ahead and order the Rocephin. 04/13/19 14:09 Attempted to call patient to make her aware of negative gonorrhea and chlamydia results. There was no answer. Patient had previously given me permission to call her with the results today. - Vital Signs Vital signs: Temp Pulse Resp BP Pulse Ox 99.0 F 97 18 147/84 H 100 04/13/19 08:51 04/13/19 08:51 04/13/19 08:51 04/13/19 08:51 04/13/19 08:51 - Diagnostic Test Radiology reviewed: Reports reviewed Radiology results interpreted by me: 04/13/19 10:57 Lumbar Spine X-Ray 04/13/19 09:22 IMPRESSION: Lower lumbar facet arthropathy Discharge - Discharge Clinical Impression: Suprapubic pain, Urinary frequency, Arthritis Low back pain Qualifiers: Chronicity: acute Back pain laterality: midline Sciatica presence: without sciatica Qualified Code(s): M54.5 - Low back pain Condition: Stable Disposition: HOME, SELF-CARE Instructions: Toradol Injection ([facility]) Additional Instructions: *Today was seen in the emergency department for suprapubic pain and back pain. I have treated you prophylactically for gonorrhea and chlamydia. You have been tested for this and you will be contacted if these are positive. If you do develop vaginal bleeding, vaginal discharge, fever or any worsening abdominal pain please return to the emergency department. We did offer you a pelvic examination which she did politely declined at this time. It was also noted on your x-ray that you have arthritis in your lower back. I will treat you with a few days of muscle relaxers due to your musculoskeletal low back pain as well as anti-inflammatories. Please make sure you eat when taking anti-inflammatories as this can cause gastric upset. Low Back Pain Three out of every four people will have an episode of disabling back pain during their lifetime. Most commonly the pain is due to straining of the muscles and ligaments in the low back. Usual treatment includes: (1) Rest on a firm surface. Avoid lying on your stomach. (2) Ice pack the painful area. After a few days, gentle heat may be used intermittently to relax the area, or ice packs can be continued. (3) Medication may be needed -- muscle relaxers and antiinflammatory medicines are commonly used. (4) As the back improves, exercises are prescribed to strengthen the back and abdominal muscles. Your doctor will advise you on the proper care for your back at each stage in your recovery. You may be better in a few days -- or healing may take several weeks. If new symptoms of a "herniated disc" (radiation of pain, numbness, or tingling down the back of the leg or weakness in the leg) occur, you should be re-examined. Further testing may be necessary. Prescriptions: Cyclobenzaprine HCl [Flexeril 10 mg Tablet] 10 mg PO TIDP PRN #12 tab PRN Reason: Naproxen 500 mg PO BID PRN #14 tablet PRN Reason: Forms: Return to Work Referrals: [facility] [Provider Group] - Follow up as needed [facility] [Provider Group] - Follow up as needed
[2019-04-13 09:56] LABS: AMORPHOUS SEDIMENT,URINE TRACE /HPF; APPEARANCE,URINE CLOUDY; BILIRUBIN,URINE NEGATIVE (NEGATIVE); COLOR,URINE YELLOW; GLUCOSE, URINE NEGATIVE (NEGATIVE); KETONES,URINE NEGATIVE (NEGATIVE); LEUKOCYTE ESTERASE,URINE TRACE (NEGATIVE); NITRITE,URINE NEGATIVE (NEGATIVE); PROTEIN,URINE NEGATIVE (NEGATIVE); URINE SPECIFIC GRAVITY 1.024
--- NOTE | 2019-04-13 10:48 | RADIOLOGY REPORT (SQ) ---
EXAM DESCRIPTION: L SPINE WHOLE COMPLETED DATE/TIME: 04/13/2019 10:28 am REASON FOR STUDY: Low back pain COMPARISON: None. NUMBER OF VIEWS: Five views including obliques. TECHNIQUE: AP, lateral, oblique, and sacral radiographic images acquired of the lumbar spine. LIMITATIONS: None. FINDINGS: MINERALIZATION: Normal. SEGMENTATION: 6 lumbar vertebral bodies. Transitional segment will be labeled T12/transitional with short ribs/ long transverse processes. This puts the most inferior well-developed disc space at L5-S 1 ALIGNMENT: Normal. VERTEBRAE: Maintained height. No fracture or worrisome bone lesion. DISCS: Preserved height. No significant osteophytes or end plate irregularity. POSTERIOR ELEMENTS: No pars defect. Moderate facet arthropathy at L4-5 and L5-S1 HARDWARE: None in the spine. PARASPINAL SOFT TISSUES: IUD in the midline pelvis PELVIS: Mild bilateral SI joint sclerosis OTHER: No other significant finding. IMPRESSION: Lower lumbar facet arthropathy TECHNICAL DOCUMENTATION: JOB ID: [id number] 2010 [email or web address]- All Rights Reserved Reading location - IP/workstation name: [email or web address]
[2019-04-13] MEDS ORDERED: AZITHROMYCIN 250 MG TABLET PO ONE (11:34)
[2019-04-13] MEDS ORDERED: CEFTRIAXONE INJ 250 MG VIAL IM ONE (11:34)
[2019-04-13] MEDS ORDERED: LIDOCAINE 1% INJ-PF (10 MG/ML) 30 ML SDV INJ ONE (11:34)
[2019-04-13 13:28] LABS: CHLAM PCR NOT DETECTED (NOT DETECT)
== END 2019-04-13 12:00 | disposition home or self-care (01) ==
LOC: ER 08:33
DX: R35.0 Frequency of micturition (principal); R10.2 Pelvic and perineal pain; M54.5 Low back pain; M13.88 Other specified arthritis, other site; F17.200 Nicotine dependence, unspecified, uncomplicated; Z90.49 Acquired absence of other specified parts of digestive tract
CPT/HCPCS: 81025; 81001; 87491; 87591; 72110; Q0144; J3490; J1885; J0696; 87086; 87088; 96372; 99283

== ENCOUNTER 2019-10-09 08:50 | Emergency (ER) | payer SELFPAY ==
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
[2019-10-09 10:25] VITALS: BP 123/96
== END 2019-10-09 10:31 | disposition home or self-care (01) ==
LOC: ER 08:50
DX: L03.116 Cellulitis of left lower limb (principal); M79.605 Pain in left leg; F17.210 Nicotine dependence, cigarettes, uncomplicated; Z88.0 Allergy status to penicillin
CPT/HCPCS: 99283

== ENCOUNTER 2019-11-29 10:18 | Emergency (ER) | payer SELFPAY ==
--- NOTE | 2019-11-29 10:45 | ER Document Report ---
ED Medical Screen (RME) - General Chief Complaint: Abdominal Pain Stated Complaint: ABDOMINAL PAIN Time Seen by Provider: 11/29/19 10:39 Mode of Arrival: Ambulatory Information source: Patient Notes: 39-year-old female presents to ED for complaint of right pelvic pain. She states there is no vaginal bleeding no vaginal discharge no fever she does have nausea but no vomiting. She does have a history of ovarian cyst about 2 years ago. She states her last menstrual cycle was on October 09. She states her periods are very irregular. Only past medical history is her gallbladder removed and the ovarian cyst. She states she smokes about 1/2 pack a day rarely drinks alcohol and does not use any illicit drugs. She is alert oriented respirations regular nonlabored speaking in full sentences. Right pelvic is tender to palpation. I have greeted and performed a rapid initial assessment of this patient. A comprehensive ED assessment and evaluation of the patient, analysis of test results and completion of medical decision making process will be conducted by an additional ED providers. TRAVEL OUTSIDE OF THE [place] IN LAST 30 DAYS: No - Related Data Allergies/Adverse Reactions: Penicillins Allergy (Verified 09/28/19 22:12) Past Medical History Renal/ Medical History: Denies: Hx Peritoneal Dialysis Musculoskeltal Medical History: Reports Hx Musculoskeletal Trauma Skin Medical History: Reports Hx Cellulitis Traumatic Medical History: Reports: Hx Fractures - Right fifth toe Past Surgical History: Reports: Hx Cholecystectomy - Immunizations Immunizations up to date: Yes Hx Diphtheria, Pertussis, Tetanus Vaccination: Yes Physical Exam - Vital signs Vitals: Temp Pulse Resp BP Pulse Ox 98.5 F 78 20 123/73 100 11/29/19 10:11/29/19 10:11/29/19 10:11/29/19 10:11/29/19 10:22 Course - Vital Signs Vital signs: Temp Pulse Resp BP Pulse Ox 98.5 F 78 20 123/73 100 11/29/19 10:11/29/19 10:22 11/29/19 10:11/29/19 10:22 11/29/19 10:22
[2019-11-29 11:19] LABS: APPEARANCE,URINE SLIGHTLY-CLOUDY; BILIRUBIN,URINE NEGATIVE (NEGATIVE); COLOR,URINE YELLOW; GLUCOSE, URINE NEGATIVE (NEGATIVE); KETONES,URINE NEGATIVE (NEGATIVE); LEUKOCYTE ESTERASE,URINE SMALL (NEGATIVE); NITRITE,URINE NEGATIVE (NEGATIVE); PROTEIN,URINE 30 mg/dL (NEGATIVE); URINE SPECIFIC GRAVITY 1.018
[2019-11-29 11:28] LABS: ABSOLUTE EOSINOPHILS # (AUTO) 0.1 10^3/uL (0.0-0.6); ABSOLUTE LYMPHOCYTES (AUTO) 2.1 10^3/uL (0.5-4.7); ABSOLUTE MONOCYTES (AUTO) 0.3 10^3/uL (0.1-1.4); ABSOLUTE NEUT (AUTO) 3.5 10^3/uL (1.7-8.2); BASOPHILS % (AUTO) 0.5 % (0-2); EOSINOPHILS % (AUTO) 1.1 % (0-6); HEMATOCRIT 40.7 % (36.0-47.0); HEMOGLOBIN 13.7 g/dL (12.0-15.5); MEAN CORPUSCULAR HEMOGLOBIN 28.6 pg (27.0-33.4); MEAN CORPUSCULAR HGB CONC 33.6 g/dL (32.0-36.0); MEAN CORPUSCULAR VOLUME 85 fl (80-97); MONOCYTES % (AUTO) 5.1 % (3-13); PLATELET COUNT 317 10^3/uL (150-450); RED BLOOD COUNT 4.79 10^6/uL (3.72-5.28); RED CELL DISTRIBUTION WIDTH 13.8 % (11.5-14.0); SEGMENTED NEUTROPHILS % (AUTO) 58.3 % (42-78); TOTAL CELLS COUNTED % (AUTO) 100 %
[2019-11-29 11:45] LABS: ALBUMIN 4.3 g/dL (3.5-5.0); ALKALINE PHOSPHATASE 98 U/L (38-126); ANION GAP 9 (5-19); ASPARTATE AMINO TRANSFERASE 27 U/L (14-36); BILIRUBIN,DIRECT 0.3 mg/dL (0.0-0.4); BILIRUBIN,TOTAL 0.6 mg/dL (0.2-1.3); BLOOD UREA NITROGEN 7 mg/dL (7-20); CALCIUM 9.2 mg/dL (8.4-10.2); CARBON DIOXIDE 19 mmol/L (22-30); CHLORIDE 108 mmol/L (98-107); GLUCOSE 97 mg/dL (75-110); POTASSIUM 4.5 mmol/L (3.6-5.0); TOTAL PROTEIN 7.1 g/dL (6.3-8.2)
[2019-11-29] MEDS ORDERED: ACETAMINOPHEN 325 MG TABLET PO ONE (12:00)
--- NOTE | 2019-11-29 12:17 | RADIOLOGY REPORT (SQ) ---
EXAM DESCRIPTION: U/S NON-OB PELVIS TV W/O DOP IMAGES COMPLETED DATE/TIME: 11/29/2019 11:35 am REASON FOR STUDY: Right pelvic pain last menstrual period October 09 COMPARISON: None. TECHNIQUE: Dynamic and static grayscale images acquired of the pelvis via transvaginal approach and recorded on PACS. Additional selected color Doppler and spectral images recorded. LIMITATIONS: None. FINDINGS: UTERUS: Contour normal. There appears to be a 12 mm fibroid. ENDOMETRIAL STRIPE: The IUD appears to be in the cervix and lower uterine segment. No endometrial th ickening. CERVIX: No nabothian cysts. RIGHT OVARY AND DOPPLER: Normal size. No worrisome masses. Normal arterial vascular flow without evid ence for torsion. LEFT OVARY AND DOPPLER: Normal size. 17 mm cyst. No worrisome masses. Normal arterial vascular flow without evidence for torsion. FREE FLUID: None noted. OTHER: No other significant finding. MEASUREMENTS: UTERUS: 10.5 x 5.7 x 5 cm ENDOMETRIAL STRIPE: 6 mm RIGHT OVARY: 4.9 x 3.4 x 3 cm LEFT OVARY: 4.5 x 3.4 x 1.8 cm IMPRESSION: The IUD is somewhat low in position. There appears to be a small uterine fibroid. Ther e is a small left ovarian cyst that is almost certainly benign. No additional imaging is required th is. TECHNICAL DOCUMENTATION: JOB ID: [id number] 2010 [employer]- All Rights Reserved Rev-07/11 Reading location - IP/workstation name: [email or web address]
[2019-11-29] MEDS ORDERED: KETOROLAC TROMETHAMINE INJ/PF 30 MG/1 ML SDV IV ONE (14:03)
--- NOTE | 2019-11-29 14:05 | ER Document Report ---
ED General - General Chief Complaint: Abdominal Pain Stated Complaint: ABDOMINAL PAIN Time Seen by Provider: 11/29/19 10:39 Primary Care Provider: RADHA ROBERTSON [Primary Care Provider] - Follow up as needed Mode of Arrival: Ambulatory Information source: Patient Notes: 39-year-old -[place] female coming in today with right lower quadrant pain that started this morning. No fevers or chills. No nausea or vomiting. History of a cholecystectomy in the past. She denies having vaginal discharge. TRAVEL OUTSIDE OF THE [place] IN LAST 30 DAYS: No - Related Data Allergies/Adverse Reactions: Penicillins Allergy (Verified 09/28/19 22:12) Past Medical History - General Information source: Patient - Social History Smoking Status: Current Every Day Smoker Family History: Reviewed & Not Pertinent, Malignancy - breast cancer- mother, grandmother Renal/ Medical History: Denies: Hx Peritoneal Dialysis Musculoskeletal Medical History: Reports Hx Musculoskeletal Trauma Skin Medical History: Reports Hx Cellulitis Traumatic Medical History: Reports: Hx Fractures - Right fifth toe Past Surgical History: Reports: Hx Cholecystectomy - Immunizations Immunizations up to date: Yes Hx Diphtheria, Pertussis, Tetanus Vaccination: Yes Review of Systems - Review of Systems Notes: Constitutional: No fevers. No chills. EENT: No eye redness. No eye pain. No ear pain. No sore throat. Cardiovascular: No chest pain. No palpitations. Respiratory: No cough. No shortness of breath. No respiratory distress. Gastrointestinal: +abdominal pain. No nausea, vomiting, or diarrhea. Genitourinary: Atraumatic. No lesions. No pain. No discharge. Musculoskeletal: Atraumatic. No swelling. No deformities. Skin: No rash or lesions. Lymphatic: No swollen lymph nodes. Neurologic: No headache. No syncope. Psychiatric: No suicidal or homicidal ideation. Physical Exam - Vital signs Vitals: Temp Pulse Resp BP Pulse Ox 98.5 F 78 20 123/73 100 11/29/19 10:22 11/29/19 10:22 11/29/19 10:22 11/29/19 10:22 11/29/19 10:22 - Notes Notes: General: Well-developed, well-nourished. In no acute distress. Non-toxic appearing. Cardiac: Well-perfused. Regular rate and rhythm. No murmurs, rubs, or gallops. Pulmonary: No respiratory distress. No cyanosis. Bilateral lung haywood are clear to auscultation. Abdominal: Tenderness to palpation over the right lower quadrant. No guarding or rebound. Abdomen is soft. Nondistended, nonrigid. Bowel sounds present all 4 quadrants HEENT: Head is atraumatic. Conjunctivae not reddened. No tearing. PERRL. EOMI. Orbits atraumatic. No periorbital swelling or erythema. Oropharynx is without erythema, swelling, or exudates. Neck: Supple. No adenopathy. No meningismus. Dermatologic: Warm with good turgor. No rash. Atraumatic. Chest: Atraumatic. No chest wall tenderness to palpation. Musculoskeletal: Moves all extremities well. No range of motion deficits. no muscular or joint tenderness. No paraspinal muscle tenderness. no midline spinal tenderness or step-off. Genitourinary: Chaperoned by patient's RN. External genitalia normal. Speculum exam reveals atraumatic vaginal mucosa. Cervix with obvious intrauterine device string. No erythema. Minimal white cervical discharge. Cervix is not erythematous. There is no cervical motion tenderness. Cultures were obtained during pelvic exam Neurologic: No gross neurologic deficits. Psychiatric: Normal mood. Course - Re-evaluation Re-evalutation: 11/29/19 14:03 Thus far the work-up does not reveal a cause for the right lower quadrant pain. Ultrasound does not show anything significant. Given the right lower quadrant tenderness, will need to get a CT scan to rule out appendicitis which I think is probably unlikely. Also will go ahead and do a pelvic exam to rule out PID. 11/29/19 15:24 Patient's pelvic exam does not look like the source of her right lower quadrant pain. Cultures were sent. CT pending 11/29/19 16:28 Patient's wet prep has resulted however gonorrhea and Chlamydia have not. She has copious epithelial cells as well as Trichomonas seen on her wet prep. I have an abundance of caution I am going to recommend the patient get Rocephin, Zithromax, and Flagyl treatment which will cover her for both trichomoniasis and bacterial vaginosis. Empirically she will also be treated for gonorrhea and chlamydia which could very possibly be present. Patient on pelvic exam does not have signs or symptoms of PID. I did tell her that in the presence of STDs that an intrauterine device can predispose an individual to pelvic inflammatory disease. Given her positive trichomonas screen today, will recommend that she have a discussion with her manager customer service or her regular doctor about the risks of continuing to use an IUD in the presence of a sexually transmitted illness. 11/29/19 16:29 11/29/19 16:34 Again patient does not show any signs of being septic or toxic. Will empirically treat for gonorrhea and chlamydia here. Valarie to go home with for a week that will take care of trichomonas and bacterial vaginosis. Zachary for the pelvic pain. Gynecology follow-up will be given - Vital Signs Vital signs: Temp Pulse Resp BP Pulse Ox 98.5 F 78 20 123/73 100 11/29/19 10:22 11/29/19 10:22 11/29/19 10:22 11/29/19 10:22 11/29/19 10:22 - Laboratory Result Diagrams: 11/29/19 10:57 11/29/19 10:57 Laboratory results interpreted by me: 11/29/19 11/29/19 10:57 10:57 Sodium 136.4 L Chloride 108 H Carbon Dioxide 19 L Urine Protein 30 H Urine Urobilinogen 2.0 H Ur Leukocyte Esterase SMALL H Discharge - Discharge Clinical Impression: Right lower quadrant pain, Trichomoniasis, Bacterial vaginosis Condition: Good Disposition: HOME, SELF-CARE Instructions: Abdominal Pain ([facility]), Vaginosis, Bacterial ([facility]), Trichomonas Infection ([facility]) Additional Instructions: You have tested positive for a sexually transmitted infection today called trichomonas. As I discussed earlier, sexually transmitted infections can lead to an increased risk for a more serious infection called pelvic inflammatory disease in patients that are using an intrauterine device is the control method. I recommend that she follow-up with gynecology and/or your primary care physician to discuss whether or not you need to continue using the intrauterine device. Prescriptions: Metronidazole [Flagyl 500 mg Tablet] 500 mg PO Q6H #28 tablet Naproxen 500 mg PO BID 5 Days #10 tablet Forms: Return to Work Referrals: LOCALMD,NO [Primary Care Provider] - Follow up as needed
[2019-11-29 15:41] LABS: BACTERIA (WET MOUNT) 4+ BACTERIA SEEN; EPITHELIALS (WET MOUNT) 4+ EPITHELIALS SEEN; RBCS (WET MOUNT) FEW RBCS SEEN; T.VAGINALIS (WET MOUNT) TRICHOMONAS SEEN; WBCS (WET MOUNT) 4+ WBCS SEEN; YEAST (WET MOUNT) NO YEAST SEEN
--- NOTE | 2019-11-29 16:18 | RADIOLOGY REPORT (SQ) ---
EXAM DESCRIPTION: CT ABD/PELVIS WITH IV ONLY IMAGES COMPLETED DATE/TIME: 11/29/2019 3:37 pm REASON FOR STUDY: right lower quadrant pain COMPARISON: Same day US TECHNIQUE: CT scan of the abdomen and pelvis performed using helical scanning technique with dynamic intravenous contrast injection. No oral contrast. Images reviewed with lung, soft tissue, and bone windows. Reconstructed coronal and sagittal MPR images reviewed. Delayed images for evaluation of the urinary system also acquired. All images stored on PACS. All CT scanners at this facility use dose modulation, iterative reconstruction, and/or weight based d osing when appropriate to reduce radiation dose to as low as reasonably achievable (ALARA). [facility]: Dose Right [facility]: CareDose [facility]: Dose Right [facility]: Teradose 4D [facility]: mangofizz jobs CONTRAST TYPE AND DOSE: contrast/concentration: Isovue 350.00 mmol/ml; Total Contrast Delivered: 96. 0 ml; Total Saline Delivered: 21.9 ml RENAL FUNCTION: 0.6 Cr RADIATION DOSE: CT Rad equipment meets quality standard of care and radiation dose reduction techniq ues were employed. CTDIvol: 12.2 - 16.5 mGy. DLP: 1534 mGy-cm.. LIMITATIONS: None. FINDINGS: LOWER CHEST: No significant findings. No nodules or infiltrates. LIVER: Normal size. No masses. No dilated ducts. SPLEEN: Normal size. No focal lesions. PANCREAS: No masses. No significant calcifications. No adjacent inflammation or peripancreatic fluid collections. Pancreatic duct not dilated. GALLBLADDER: Surgically absent. ADRENAL GLANDS: No significant masses or asymmetry. RIGHT KIDNEY AND URETER: No solid masses. No significant calcifications. No hydronephrosis or hyd roureter. LEFT KIDNEY AND URETER: No solid masses. No significant calcifications. No hydronephrosis or hydr oureter. AORTA AND VESSELS: No aneurysm. No dissection. Renal arteries, SMA, celiac without stenosis. RETROPERITONEUM: No retroperitoneal adenopathy, hemorrhage or masses. BOWEL AND PERITONEAL CAVITY: Moderate volume low density free fluid within the pelvis. There is a 2. 5 cm fat containing lesion within the right hemipelvis (series 3, image 68), likely epiploic appendag e. Intrauterine device present which appears to be within the lower uterine canal and cervix. APPENDIX: Normal. PELVIS: Decompressed urinary bladder. Additional findings as above. ABDOMINAL WALL: No masses. No hernias. BONES: No significant or acute findings. OTHER: No other significant finding. IMPRESSION: 1. Intrauterine device within the lower uterine segment and cervix. Moderate volume lo w density pelvic free fluid. 2. Normal appendix. 3. No other evidence of acute intra-abdominal/pelvic process. TECHNICAL DOCUMENTATION: JOB ID: [id number] Quality ID # [id number]: Final reports with documentation of one or more dose reduction techniques (e.g., Au tomated exposure control, adjustment of the mA and/or kV according to patient size, use of iterative reconstruction technique) 2010 [employer]- All Rights Reserved Reading location - IP/workstation name: [facility]-
[2019-11-29] MEDS ORDERED: AZITHROMYCIN 250 MG TABLET PO ONE (16:32)
[2019-11-29] MEDS ORDERED: CEFTRIAXONE 1 GM/D5W RTU 1 GM/50 ML RTUPB IV ONE (16:32)
[2019-11-29 17:01] VITALS: BP 131/80
[2019-11-29 17:12] LABS: CHLAM PCR NOT DETECTED (NOT DETECT)
== END 2019-11-29 17:31 | disposition home or self-care (01) ==
LOC: ER 10:18
DX: A59.00 Urogenital trichomoniasis, unspecified (principal); N76.0 Acute vaginitis; B96.89 Other specified bacterial agents as the cause of diseases classified elsewhere; R10.31 Right lower quadrant pain; Z90.49 Acquired absence of other specified parts of digestive tract; Z88.0 Allergy status to penicillin; F17.200 Nicotine dependence, unspecified, uncomplicated
CPT/HCPCS: 99285; 96375; 96365; 36415; 87086; 87210; 84702; 85025; 80053; 81001; 87491; 87591; 76830; 74177; J1885; J0696